=== PATIENT | female | born 1935 | race Two or more races ===

== ENCOUNTER 2017-08-29 11:36 | Emergency (ER) | payer MEDICARE, MEDICAID ==
[~2017-08-29] VITALS: Ht 149.9 cm; Wt 55.0 kg
[2017-08-29 15:46] VITALS: BP 141/61
[2017-08-29] MEDS ORDERED: ACETAMINOPHEN 325MG TABLET PO ONE (17:15)
== END 2017-08-29 17:54 | disposition home or self-care (01) ==
LOC: ER 14:15
DX: K06.8 Other specified disorders of gingiva and edentulous alveolar ridge (principal); R58 Hemorrhage, not elsewhere classified; K08.89 Other specified disorders of teeth and supporting structures; I10 Essential (primary) hypertension; E11.9 Type 2 diabetes mellitus without complications; E78.00 Pure hypercholesterolemia, unspecified
CPT/HCPCS: 99282